=== PATIENT | female | born 1960 | race Caucasian/White ===

== ENCOUNTER 2016-12-18 23:53 | Inpatient (IN) ==
[2016-12-19 01:13] LABS: Bilirubin,Urine Negative (Negative); Blood,Urine Trace (Negative); Clarity,Urine Cloudy (Clear); Color,Urine Yellow (Yellow); Glucose,Urine (UA) Normal (Normal); Ketones,Urine Negative (Negative); Leukocyte Esterase,Urine Negative (Negative); Nitrite,Urine Negative (Negative); Protein,Urine Trace mg/dL (Neg-Trace); Urobilinogen,Urine Normal (Normal)
[2016-12-19 01:15] LABS: Bacteria,Urine None Seen per hpf (None-Few); Hyaline Casts,Urine None Seen per lpf (None-Few); RBC,Urine 0-3 per hpf (0-3); Squamous Epithelial Cell,Urine Many per lpf (None-Few); WBC,Urine 0-3 per hpf (0-3)
[2016-12-19 01:19] LABS: Basophils # 0.1 K/mcL (0.0-0.2); Basophils % 0.6 %; Eosinophils # 0.2 K/mcL (0.0-0.6); Eosinophils % 1.6 %; Hematocrit 35.2 % (35.3-44.9); Immature Granulocytes % 0.6 % (0-4); Lymphocytes % 14.5 %; Mean Corpuscular HGB Conc 36.9 g/dL (31.6-35.5); Mean Corpuscular Hemoglobin 31.8 pg (28.0-33.3); Mean Corpuscular Volume 86.1 fL (83.0-100.0); Mean Platelet Volume 9.9 fL (9.4-12.4); Monocytes # 1.4 K/mcL (0.0-1.3); Neutrophils # 10.2 K/mcL (1.6-8.9); Platelet Count 263 K/mcL (140-400); Red Blood Count 4.09 M/mcL (3.82-4.97); Red Cell Distribution Width 12.6 % (11.5-14.5); Segmented Neutrophils % 72.7 %
[2016-12-19 01:35] LABS: Alanine Aminotransferase 260 Units/L (0-55); Albumin 3.2 g/dL (3.5-5.0); Albumin/Globulin Ratio 0.7 (1.1-2.2); Alkaline Phosphatase 240 Units/L (38-126); Aspartate Amino Transferase 289 Units/L (5-34); BUN/Creatinine Ratio 8 (6-26); Bilirubin,Direct 0.7 mg/dL (0.0-0.5); Bilirubin,Indirect 0.6 mg/dL (0.0-1.2); Bilirubin,Total 1.3 mg/dL (0.2-1.2); Blood Urea Nitrogen 8 mg/dL (7-20); Calcium 9.2 mg/dL (8.6-10.8); Carbon Dioxide 25 mEq/L (19-29); Chloride 100 mEq/L (98-109); Globulin 4.5 g/dL (2.4-3.5); Glucose 138 mg/dL (70-99); Lipase 24 Units/L (8-78); Osmolality,Calculated 281 (280-300); Potassium 3.2 mEq/L (3.5-4.5); Sodium 135 mEq/L (136-145); Total Protein 7.7 g/dL (6.0-8.3); eGFR For African Americans > 60 (> 60); eGFR For Non-African Americans 56 (> 60)
--- NOTE | 2016-12-19 03:26 | Emergency Department Note ---
Disposition Clinical Impression: Sepsis Qualifiers: Sepsis type: sepsis due to unspecified organism Qualified Code(s): A41.9 - Sepsis, unspecified organism Acute appendicitis Qualifiers: Acute appendicitis type: with localized peritonitis Qualified Code(s): K35.3 - Acute appendicitis with localized peritonitis Disposition: Admitted As Inpatient Condition: Serious Time of Disposition: 06:20 Abdominal Pain HPI - General Chief Complaint: ED Abdominal Pain Stated Complaint: abd pain Time Seen by Provider: 12/19/16 03:00 Source: patient Mode of arrival: ambulatory Limitations: no limitations Nursing Notes Reviewed: Yes Vital Signs Reviewed: Yes - History of Present Illness HPI Narrative: 56 0 female with 1 week of abdominal pain, patient was seen and evaluated and told she constipation at the urgent care about 3 or 4 days ago. Patient states that she has right lower quadrant right upper quadrant pain radiating to her back. She states the pain is 8 out of 10 crampy, and she is uncomfortable. Her last meal was about 2:00 in the morning A she has a history of tubal ligation , she has no other medical issues and no other previous surgeries. He reports some emesis and nausea, denies fever chills Pt Subjective Complaint: abdominal pain Onset (ago): day(s) (5) Consistency: intermittent Location: diffuse, RLQ Pain Severity: moderate Pain Scale: 7 Quality: cramping, stabbing Radiation: RLQ Worsens with: eating, vomiting Associated symptoms: Reports: nausea, vomiting. Denies: fever, hematemesis, hematochezia - Related Data Home Medications Medication Instructions Recorded Confirmed Celecoxib [Celebrex] 200 mg PO DAILY 12/19/16 12/19/16 Cyclobenzaprine [Flexeril] 10 mg PO DAILY PRN 12/19/16 12/19/16 Methylphenidate HCl [Ritalin] 20 mg PO DAILY 12/19/16 12/19/16 Triamterene/Hydrochlorothiazid 1 each PO DAILY 12/19/16 12/19/16 [Dyazide 37.5-25 Capsule] Venlafaxine HCl [Venlafaxine HCl 150 mg PO DAILY 12/19/16 12/19/16 ER] Previous Rx's Medication Instructions Recorded Dicyclomine [Bentyl] 10 mg PO QID PRN #20 capsule 12/16/16 Na Phos,M-B/Na Phos,Di-Ba [Fleet 230 ml RC BID #2 enema 12/16/16 Enema Extra] Ondansetron HCl [Zofran] 4 mg PO QID #15 tablet 12/16/16 Allergies Allergy/AdvReac Type Severity Reaction Status Date / Time Sulfa (Sulfonamide Allergy Rash Verified 12/19/16 00:55 Antibiotics) All systems ED: reviewed and negative except as stated. Constitutional: Denies: fever, chills Cardiovascular: Denies: chest pain, palpitations Respiratory: Denies: cough, dyspnea, wheezes Gastrointestinal: Reports: abdominal pain, nausea, vomiting. Denies: diarrhea, hematemesis, melena, hematochezia Genitourinary: Denies: urgency, dysuria Musculoskeletal: Denies: back pain, neck pain Integumentary: Denies: rash, abrasion Abdominal Pain PMH - Past Medical History Medical history: Reports: no medical history Female Surgical History: Reports: - Social History Smoking status: Never smoker Alcohol use: Reports: none Drug use: Reports: none Physical Exam Constitutional: alert and oriented, in NAD, tachycardia Neck: normal inspection, neck is supple, trachea midline Resp: normal chest inspection, CTA bilaterally, no resp distress CV: Tachycardia, no m/g/r GI: Right lower quadrant tenderness with positive rebound and mild guarding. Normoactive bowel sounds, also right upper quadrant tenderness with a Rodas sign. Back: normal inspection, no tenderness to palpation Neuro: A&O3, no gross motor or sensory deficits bilaterally MSK: normal inspection, bilateral UE and LE with normal ROM Psych: normal mood, normal affect Skin: No rashes, skin warm, dry, intact - General General appearance: alert, in no apparent distress Course Course Narrative: 56-year-old female with right lower quadrant tenderness right upper quadrant tenderness and diffuse abdominal tenderness, told this was constipation, mildly tachycardic initially but her rate was 82 after an hour in the ED, basic lab work was ordered and showed a mildly leukocytosis and transaminitis without alert ordered an ultrasound of her gallbladder also will get a CT of her abdomen to evaluate for abdominal pathology - Reevaluation(s) Reevaluation #1: Call from radiology 05:00 with appendicitis on exam, this is her source for infection, given that she is a sore she had some tachycardia and has a leukocytosis will add blood cultures, started empirically on Zosyn and a lactate , patient technically meets for sepsis does not appear to have severe sepsis however does have evidence of transaminitis, lactate pending, initial fluid bolus, patient is nothing by mouth added coags will talk to general surgery for admission Vital Signs Temperature 99.6 F 12/19/16 00:53 Pulse Rate 108 12/19/16 00:53 Respiratory Rate 18 12/19/16 00:53 Blood Pressure 125/85 12/19/16 00:53 O2 Sat by Pulse Oximetry 98 12/19/16 00:53 Temperature 99.4 F 12/19/16 07:10 Pulse Rate 89 12/19/16 07:10 Respiratory Rate 16 12/19/16 07:10 Blood Pressure 120/76 12/19/16 07:10 O2 Sat by Pulse Oximetry 97 12/19/16 09:05 Oxygen Delivery Oxygen Delivery Room Air Abdominal Pain - MDM Narrative Medical decision making narrative: 56-year-old female with acute appendicitis with perforation possible abscess, started on Zosyn and IV fluids, spoke with Dr. Sutton will admit the patient for the general surgery service, technically meets criteria for sepsis this was recognized after findings of appendicitis, and patient was immediately started on empiric antibiotics after lactate and blood cultures were drawn, initial lactate was not elevated. - Differential Diagnosis Differential Diagnosis: Likely: abdominal pain non-specific, acute appendicitis , diverticulitis, diverticulosis - Medical Records Medical records reviewed: Yes I reviewed the patient's medical records. - Lab Data Lab results reviewed: Yes I reviewed the patient's lab results. Result diagrams: 12/19/16 01:13 12/19/16 01:13 Lab Results 12/19/16 12/19/16 12/19/16 Range/Units 01:05 01:13 01:13 WBC 14.0 H (4.3-11.1) K/mcL RBC 4.09 (3.82-4.97) M/mcL Hgb 13.0 (11.5-15.4) g/dL Hct 35.2 L (35.3-44.9) % MCV 86.1 (83.0-100.0) fL MCH 31.8 (28.0-33.3) pg MCHC 36.9 H (31.6-35.5) g/dL RDW 12.6 (11.5-14.5) % Plt Count 263 (140-400) K/mcL MPV 9.9 (9.4-12.4) fL Immature Gran % 0.6 (0-4) % Seg Neutrophils % 72.7 % Lymphocytes % 14.5 % Monocytes % 10.0 % Eosinophils % 1.6 % Basophils % 0.6 % Neutrophils # 10.2 H (1.6-8.9) K/mcL Lymphocytes # 2.0 (0.6-4.6) K/mcL Monocytes # 1.4 H (0.0-1.3) K/mcL Eosinophils # 0.2 (0.0-0.6) K/mcL Basophils # 0.1 (0.0-0.2) K/mcL PT (9.4-12.1) Seconds INR APTT (26.0-36.0) Seconds Sodium 135 L (136-145) mEq/L Potassium 3.2 L (3.5-4.5) mEq/L Chloride 100 (98-109) mEq/L Carbon Dioxide 25 (19-29) mEq/L BUN 8 (7-20) mg/dL Creatinine 1.02 (0.57-1.11) mg/dL Est GFR ( Amer) > 60 (> 60) Est GFR (Non-Af Amer) 56 L (> 60) BUN/Creatinine Ratio 8 (6-26) Glucose 138 H (70-99) mg/dL POC Glucose (58-89) Calculated Osmolality 281 (280-300) Lactic Acid (0.5-2.2) mmol/L Calcium 9.2 (8.6-10.8) mg/dL Total Bilirubin 1.3 H (0.2-1.2) mg/dL Direct Bilirubin 0.7 H (0.0-0.5) mg/dL Indirect Bilirubin 0.6 (0.0-1.2) mg/dL AST 289 H (5-34) Units/L ALT 260 H (0-55) Units/L Alkaline Phosphatase 240 H (38-126) Units/L Serum Total Protein 7.7 (6.0-8.3) g/dL Albumin 3.2 L (3.5-5.0) g/dL Globulin 4.5 H (2.4-3.5) g/dL Albumin/Globulin Ratio 0.7 L (1.1-2.2) Lipase 24 (8-78) Units/L Urine Color Yellow (Yellow) Urine Clarity Cloudy A (Clear) Urine pH 7.0 (5.0-8.0) pH Units Ur Specific [place] 1.010 (1.010-1.025) Urine Protein Trace (Neg-Trace) mg/dL Urine Glucose (UA) Normal (Normal) mg/dL Urine Ketones Negative (Negative) mg/dL Urine Blood Trace H (Negative) Urine Nitrite Negative (Negative) Urine Bilirubin Negative (Negative) Urine Urobilinogen Normal (Normal) mg/dL Ur Leukocyte Esterase Negative (Negative) Urine Microscopic RBC 0-3 (0-3) per hpf Urine Microscopic WBC 0-3 (0-3) per hpf Ur Squamous Epith Cells Many H (None-Few) per lpf Urine Bacteria None Seen (None-Few) per hpf Hyaline Casts None Seen (None-Few) per lpf Ur Culture Indicated? NO (NO) 12/19/16 12/19/16 12/19/16 Range/Units 05:40 05:40 08:19 WBC (4.3-11.1) K/mcL RBC (3.82-4.97) M/mcL Hgb (11.5-15.4) g/dL Hct (35.3-44.9) % MCV (83.0-100.0) fL MCH (28.0-33.3) pg MCHC (31.6-35.5) g/dL RDW (11.5-14.5) % Plt Count (140-400) K/mcL MPV (9.4-12.4) fL Immature Gran % (0-4) % Seg Neutrophils % % Lymphocytes % % Monocytes % % Eosinophils % % Basophils % % Neutrophils # (1.6-8.9) K/mcL Lymphocytes # (0.6-4.6) K/mcL Monocytes # (0.0-1.3) K/mcL Eosinophils # (0.0-0.6) K/mcL Basophils # (0.0-0.2) K/mcL PT 13.7 H (9.4-12.1) Seconds INR 1.3 APTT 27.7 (26.0-36.0) Seconds Sodium (136-145) mEq/L Potassium (3.5-4.5) mEq/L Chloride (98-109) mEq/L Carbon Dioxide (19-29) mEq/L BUN (7-20) mg/dL Creatinine (0.57-1.11) mg/dL Est GFR ( Amer) (> 60) Est GFR (Non-Af Amer) (> 60) BUN/Creatinine Ratio (6-26) Glucose (70-99) mg/dL POC Glucose 129 H (58-89) Calculated Osmolality (280-300) Lactic Acid 1.0 (0.5-2.2) mmol/L Calcium (8.6-10.8) mg/dL Total Bilirubin (0.2-1.2) mg/dL Direct Bilirubin (0.0-0.5) mg/dL Indirect Bilirubin (0.0-1.2) mg/dL AST (5-34) Units/L ALT (0-55) Units/L Alkaline Phosphatase (38-126) Units/L Serum Total Protein (6.0-8.3) g/dL Albumin (3.5-5.0) g/dL Globulin (2.4-3.5) g/dL Albumin/Globulin Ratio (1.1-2.2) Lipase (8-78) Units/L Urine Color (Yellow) Urine Clarity (Clear) Urine pH (5.0-8.0) pH Units Ur Specific [place] (1.010-1.025) Urine Protein (Neg-Trace) mg/dL Urine Glucose (UA) (Normal) mg/dL Urine Ketones (Negative) mg/dL Urine Blood (Negative) Urine Nitrite (Negative) Urine Bilirubin (Negative) Urine Urobilinogen (Normal) mg/dL Ur Leukocyte Esterase (Negative) Urine Microscopic RBC (0-3) per hpf Urine Microscopic WBC (0-3) per hpf Ur Squamous Epith Cells (None-Few) per lpf Urine Bacteria (None-Few) per hpf Hyaline Casts (None-Few) per lpf Ur Culture Indicated? (NO) - Radiology Data Radiology results reviewed: Yes I reviewed the patient's radiology results. Gallbladder Ultrasound 12/19/16 03:32 IMPRESSION: No cholelithiasis. No biliary dilation. Hepatic steatosis. D/ / Melo Lea MD / Melo Lea MD Interpreting Provider: Melo Lea MD Abdomen/Pelvis CT 12/19/16 03:33 IMPRESSION: 1. Acute appendicitis with extensive inflammatory stranding within the right lower quadrant and small ill-defined fluid collection likely representing a developing abscess. This collection is not amenable to percutaneous drainage. These findings were discussed with Kyrie Jauregui at 5:11 a.m. 12/19/2016. 2. Hepatomegaly with steatosis. D/ / Adebayo Oliveros MD / Adebayo Oliveros MD Interpreting Provider: Adebayo Oliveros MD Critical Care Time Critical Care Time: Yes Total Critical Care Time: 35 Attestation: The high probability of a clinically significant, sudden or life threatening deterioration of the cardiovascular system(s) required my full and direct attention, intervention and personal management. The aggregate critical care time was 35 minutes. This time is in addition to time spent performing reported procedures but includes the following: [x] Data Review and interpretation [x] Patient assessment and monitoring of vital signs [x] Documentation [x] Medication orders and management Attestation Statement - Attestation Attestation: I examined this patient and my medical decision-making was reviewed with the CLINICAL SUPERVISOR/PA/Advanced Practice Nurse/Resident Physician. I agree with the documented findings, disposition and treatment plan as described except to the extent set forth below. 56 yo female presents with abdominal pain. Pt reports pain in the RUQ and RLQ. Initial labs ordered from the waiting room. US of the RUQ did not reveal acute cholecystitis. CT abd/pelvis shows likely ruptured appendicitis. Pt started on Abx and admitted to surgery.
[2016-12-19] MEDS ORDERED: Ondansetron 4 MG/2 ML VIAL IV ONE (03:33)
[2016-12-19] MEDS ORDERED: *HR* HYDROmorphone (PF) 1 MG/ML SYRINGE IV ONE (03:33)
[2016-12-19] MEDS ORDERED: 0.9 % Sodium Chloride 1,000 ML IVC ONE (03:33)
[2016-12-19] MEDS ORDERED: Piperacillin/Tazobactam 3.375 GM in D5% in Water (Mini-Bag+) 100 ML IVPB ONE (05:13)
[2016-12-19] MEDS ORDERED: *HR* Morphine 2 MG/ML SYRINGE IV ONE (05:29)
[2016-12-19 06:00] LABS: INR 1.3; Prothrombin Time 13.7 Seconds (9.4-12.1)
[2016-12-19 06:03] LABS: Activated Partial Thrombo Time 27.7 Seconds (26.0-36.0)
--- NOTE | 2016-12-19 08:16 | General Surg History&Physical ---
Date of Encounter: 12/19/16 Time of Encounter: 07:30 Assessment and Plan (1) Acute appendicitis Current Visit: Yes Status: Acute The assessment and plan as outlined above was discussed with the patient and/or family members who expressed understanding and agreement. All questions were answered. The patient has a phlegmon in the right lower quadrant 5 day history of abdominal pain. There are no discrete fluid collections area I believe that this is best treated with antibiotics and clinical reevaluation for abscess development. She would best be served with convalescent laparoscopic appendectomy after successful antibiotic therapy. If she requires urgent operation this carries a higher risk of bowel resection Qualifiers: Acute appendicitis type: with localized peritonitis Qualified Code(s): K35.3 - Acute appendicitis with localized peritonitis History of Present Illness Chief complaint: Abdominal pain HPI: Ms. Bedoya is a 56 year old female With 5-6 days of abdominal pain. She states that her pain has been diffuse and nonspecific. Over the last 24 hours the pain is concentrated more on the right lower quadrant. She is experiencing nausea but no vomiting. She has had fevers shakes and chills .she is not anorexic she sought evaluation in the emergency room and laboratory values demonstrated leukocytosis CAT scan demonstrated phlegmon in the right lower quadrant. This is likely from perforated appendicitis. There is no discrete abscess she now presents for inpatient therapy for phlegmon of the right lower quadrant Past Med Surg Social Fam HX - Past Medical History Medical history: no medical history Psychiatric history: depression - Past Surgical History Surgical History: - Social History Smoking Status: Never smoker Smokeless Tobacco Status: No Alcohol use: rarely Drug use: none - Family History Mother Living Status: Age at : 72 Cause of : Post Op Complications Hx Family Cardiac Disorders: Yes (HTN) Hx Family Respiratory Disorders: Yes (COPD) Hx Family Cancer: Yes (Sarcoma) Hx Family GI Disorders: No Hx Family Genitourinary Disorders: No Hx Family Endocrine Disorder: No Hx Family Musculoskeletal Disorders: Yes (Scoliosis) Hx Family Neuromuscular Disorders: No Hx Family Neurologic Disorders: No Hx Family HEENT Disorders: No Hx Family Autoimmune Disorders: No Hx Family Reproductive Disorders: No Hx Family Psychosocial Disorders: No Hx Family Medical Disorders: No Medications and Allergies Dicyclomine [Bentyl] 10 mg PO QID PRN #20 capsule 12/16/16 [Rx] Na Phos,M-B/Na Phos,Di-Ba [Fleet Enema Extra] 230 ml RC BID #2 enema 12/16/16 [ Rx] Ondansetron HCl [Zofran] 4 mg PO QID #15 tablet 12/16/16 [Rx] Cyclobenzaprine [Flexeril] 10 mg PO ONCE 12/19/16 [History] Methylphenidate HCl [Ritalin] 20 mg PO DAILY 12/19/16 [History] Triamterene/HCTZ 37.5/25mg [Dyazide] 12/19/16 [History] Venlafaxine [Effexor] 25 mg PO 12/19/16 [History] Allergies Sulfa (Sulfonamide Antibiotics) Allergy (Verified 12/19/16 00:55) Rash Review of Systems All systems PM: A 10-system review of systems was performed and is negative for pertinent findings except as documented above in the HPI. General Surgery Exam Initial Vital Signs Temp Pulse Resp BP Pulse Ox 99.6 F 108 18 125/85 98 12/19/16 00:53 12/19/16 00:53 12/19/16 00:53 12/19/16 00:53 12/19/16 00:53 - General physical appearance well developed, well nourished, no distress - ENT normal pinna, normal nares, normal mucosa, no hearing loss, no congestion - Respiratory normal expansion, normal respiratory effort, clear to percussion, clear to auscultation - Cardiovascular Cardiovascular exam: Present: RRR, 15, 16 - Abdomen Abdomen general surgery: Present: guarding, rebound (Left side of the abdomen is mildly tender with no guarding.) Abdominal Tenderness: Present: RLQ - Neurologic Present: CN 2-12 grossly intact, normal coordination, normal sensation - Psychiatric Psychiatric general surgery: Present: appropriate, oriented to person, oriented to place, oriented to time, speech is normal, memory intact Results - Labs 12/19/16 01:13 12/19/16 01:13 Abnormal lab results WBC 14.0 K/mcL (4.3-11.1) H 12/19/16 01:13 Hct 35.2 % (35.3-44.9) L 12/19/16 01:13 MCHC 36.9 g/dL (31.6-35.5) H 12/19/16 01:13 Neutrophils # 10.2 K/mcL (1.6-8.9) H 12/19/16 01:13 Monocytes # 1.4 K/mcL (0.0-1.3) H 12/19/16 01:13 PT 13.7 Seconds (9.4-12.1) H 12/19/16 05:40 Sodium 135 mEq/L (136-145) L 12/19/16 01:13 Potassium 3.2 mEq/L (3.5-4.5) L 12/19/16 01:13 Est GFR (Non-Af Amer) 56 (> 60) L 12/19/16 01:13 Glucose 138 mg/dL (70-99) H 12/19/16 01:13 Total Bilirubin 1.3 mg/dL (0.2-1.2) H 12/19/16 01:13 Direct Bilirubin 0.7 mg/dL (0.0-0.5) H 12/19/16 01:13 AST 289 Units/L (5-34) H 12/19/16 01:13 ALT 260 Units/L (0-55) H 12/19/16 01:13 Alkaline Phosphatase 240 Units/L (38-126) H 12/19/16 01:13 Albumin 3.2 g/dL (3.5-5.0) L 12/19/16 01:13 Globulin 4.5 g/dL (2.4-3.5) H 12/19/16 01:13 Albumin/Globulin Ratio 0.7 (1.1-2.2) L 12/19/16 01:13 Urine Clarity Cloudy (Clear) A 12/19/16 01:05 Urine Blood Trace (Negative) H 12/19/16 01:05 Ur Squamous Epith Cells Many per lpf (None-Few) H 12/19/16 01:05 All other labs normal. - Imaging CT scan - abdomen: image reviewed (I personally reviewed the CAT scan abdomen. I agree with the findings of. Cecal and mesentery inflammation. There is also a localized loop of dilated small bowel terminal ileum adjacent to be phlegmon. I cannot clearly see the appendix.)
[2016-12-19] MEDS ORDERED: Ondansetron 4 MG/2 ML VIAL IVP PRN (09:04)
[2016-12-19] MEDS ORDERED: Naloxone 0.4 MG/ML INJ IVP PRN (09:04)
[2016-12-19] MEDS: 0.9 % Sodium Chloride 1,000 ML IVC SCH ×2 (09:24→21:53)
[2016-12-19] MEDS: *HR* HYDROmorphone (PF) 1 MG/ML SYRINGE IVP PRN ×8 (09:24→23:08)
[2016-12-19] MEDS: Piperacillin/Tazobactam 3.375 GM in D5% in Water (Mini-Bag+) 100 ML IVPB SCH (15:48)
[2016-12-19] MEDS: *HR* Heparin 5,000 UNIT/ML VIAL SQ SCH (18:12)
[2016-12-20] MEDS: Piperacillin/Tazobactam 3.375 GM in D5% in Water (Mini-Bag+) 100 ML IVPB SCH ×4 (00:11→23:42)
[2016-12-20] MEDS: *HR* HYDROmorphone (PF) 1 MG/ML SYRINGE IVP PRN ×8 (04:04→23:41)
[2016-12-20 05:21] LABS: Basophils # 0.1 K/mcL (0.0-0.2); Basophils % 0.6 %; Eosinophils # 0.3 K/mcL (0.0-0.6); Eosinophils % 2.3 %; Hemoglobin 11.5 g/dL (11.5-15.4); Immature Granulocytes % 1.2 % (0-4); Lymphocytes # 1.3 K/mcL (0.6-4.6); Lymphocytes % 11.4 %; Mean Corpuscular HGB Conc 35.9 g/dL (31.6-35.5); Mean Corpuscular Hemoglobin 31.6 pg (28.0-33.3); Mean Corpuscular Volume 87.9 fL (83.0-100.0); Mean Platelet Volume 10.1 fL (9.4-12.4); Monocytes # 1.4 K/mcL (0.0-1.3); Monocytes % 11.9 %; Neutrophils # 8.2 K/mcL (1.6-8.9); Platelet Count 228 K/mcL (140-400); Red Blood Count 3.64 M/mcL (3.82-4.97); Red Cell Distribution Width 13.1 % (11.5-14.5); Segmented Neutrophils % 72.6 %
[2016-12-20] MEDS: *HR* Heparin 5,000 UNIT/ML VIAL SQ SCH ×2 (05:37→16:32)
--- NOTE | 2016-12-20 08:48 | General Surgery Progress Note ---
Date of Encounter: 12/20/16 Time of Encounter: 08:45 - Assessment and Plan (1) Acute appendicitis Current Visit: Yes Status: Acute Phlegmon in RLQ. She is feeling better today. The involuntary guarding has subsided. Denies nausea. WBC down to 11.3 today from 14 yesterday. Plan is to re-image abdomen at 48-72 hours to check for abscess. Conservative measures to continue. Continue Zosyn, clear liquid diet, antiemetics, pain control, IVF NS@100ml/hr Qualifiers: Acute appendicitis type: with localized peritonitis Qualified Code(s): K35.3 - Acute appendicitis with localized peritonitis Subjective Patient reports: feels better, still having pain, pain is less Narrative: Patient seen and examined. She is feeling better today, but is still having abdominal tenderness. However the involuntary guarding has subsided. Objective Vital Signs - Last 8 Hours Temp Pulse Resp BP Pulse Ox 12/20/16 06:29 98.5 F 99 16 107/70 98 Intake and Output 12/19/16 12/20/16 12/20/16 23:59 07:59 15:59 Intake Total 1340 / 1340 120 / 120 Output Total 1300 / 1300 600 / 600 Balance 40 / 40 -480 / -480 Intake: IV Fluids 1100 / 1100 0.9 % Sodium Chloride 1, 1000 / 1000 000 ML @ 100 mls/hr IVC . Q10H JAILYN Rx#:[id number] Zosyn 3.375 GM In 100 / 100 Dextrose 5% (Minibag+) 100 ML 100 ML @ 25 mls/hr IVPB Q8HR JAILYN Rx#: [id number] Oral 240 / 240 120 / 120 Output: Urine 1300 / 1300 600 / 600 Other: Meal Dinner Percent of Meal Consumed 50% - Additional Exam - General physical appearance well developed, well nourished, no distress - ENT normal pinna, normal nares, normal mucosa, no hearing loss, no congestion - Respiratory normal expansion, normal respiratory effort, clear to percussion, clear to auscultation - Cardiovascular Cardiovascular exam: Present: RRR, 15, 16 - Abdomen Abdomen general surgery: Present: right-sided abdominal tenderness, Absent: guarding Abdominal Tenderness: Present: RLQ - Neurologic Present: CN 2-12 grossly intact, normal coordination, normal sensation - Psychiatric Psychiatric general surgery: Present: appropriate, oriented to person, oriented to place, oriented to time, speech is normal, memory intact - Labs 12/20/16 04:15 12/19/16 01:13 Consult Discharge Plan - Plan Referrals: Oleksandr Mai MD [Primary Care Provider] - - Attending Attestation I examined this patient and my medical decision-making was reviewed with the MEDICAL DEVICE SALES/PA/Advanced Practice Nurse/Resident Physician. I agree with the documented findings, disposition and treatment plan as described except to the extent set forth below. The patient was seen and evaluated on morning rounds with the resident. She is made significant improvement in her abdominal pain. Her white blood cell count has normalized. We will continue IV antibiotics today. We will plan on convalescent laparoscopic appendectomy electively. Asim Sutton MD FACS
[2016-12-20] MEDS: 0.9 % Sodium Chloride 1,000 ML IVC SCH (16:19)
[2016-12-21] MEDS: 0.9 % Sodium Chloride 1,000 ML IVC SCH ×2 (01:54→12:01)
[2016-12-21] MEDS: *HR* HYDROmorphone (PF) 1 MG/ML SYRINGE IVP PRN ×11 (04:10→21:41)
[2016-12-21] MEDS: *HR* Heparin 5,000 UNIT/ML VIAL SQ SCH ×2 (06:28→19:17)
[2016-12-21] MEDS: Piperacillin/Tazobactam 3.375 GM in D5% in Water (Mini-Bag+) 100 ML IVPB SCH ×2 (07:49→15:40)
[2016-12-21 09:30] LABS: Hematocrit 29.2 % (35.3-44.9); Hemoglobin 10.5 g/dL (11.5-15.4); Mean Corpuscular Hemoglobin 31.5 pg (28.0-33.3); Mean Corpuscular Volume 87.7 fL (83.0-100.0); Mean Platelet Volume 9.7 fL (9.4-12.4); Platelet Count 212 K/mcL (140-400); Red Blood Count 3.33 M/mcL (3.82-4.97)
--- NOTE | 2016-12-21 09:52 | General Surgery Progress Note ---
Date of Encounter: 12/21/16 Time of Encounter: 09:50 - Assessment and Plan (1) Acute appendicitis Current Visit: Yes Status: Acute Phlegmon in RLQ. Plan is for convalescent laparoscopic appendectomy electively. Still having abdominal pain today. States it is a bit worse than yesterday. The involuntary guarding has subsided. Denies nausea. WBC: 14>11.3>8.[address] abd/pel with oral contrast to r/o abscess. Imaging results will guide treatment. Conservative measures to continue. Continue Zosyn, clear liquid diet, antiemetics, pain control, IVF NS@100ml/hr Qualifiers: Acute appendicitis type: with localized peritonitis Qualified Code(s): K35.3 - Acute appendicitis with localized peritonitis Subjective Patient reports: still having pain, afebrile Narrative: Patient seen and examined. Still having abdominal pain today. Will obtain repeat abdominal/pelvis CT to r/o abscess formation. Afebrile. WBC 8.7. Objective Vital Signs - Last 8 Hours Temp Pulse Resp BP Pulse Ox 12/21/16 06:44 98.4 F 88 16 119/79 96 12/21/16 04:11 98.7 F 86 16 124/74 94 L Intake and Output 12/20/16 12/21/16 12/21/16 23:59 07:59 15:59 Intake Total 460 / 460 2100 / 2100 120 / 120 Output Total 1300 / 1300 1250 / 1250 Balance -840 / -840 850 / 850 120 / 120 Intake: IV Fluids 100 / 100 1100 / 1100 0.9 % Sodium Chloride 1, 1000 / 1000 000 ML @ 100 mls/hr IVC . Q10H JAILYN Rx#:[id number] Zosyn 3.375 GM In 100 / 100 100 / 100 Dextrose 5% (Minibag+) 100 ML 100 ML @ 25 mls/hr IVPB Q8HR JAILYN Rx#: [id number] Oral 360 / 360 1000 / 1000 120 / 120 Output: Urine 1300 / 1300 1250 / 1250 Other: Meal Breakfast Percent of Meal Consumed 10% - Additional Exam - General physical appearance well developed, well nourished, no distress - Respiratory normal expansion, normal respiratory effort, clear to percussion, clear to auscultation - Cardiovascular Cardiovascular exam: Present: RRR - Abdomen Abdomen general surgery: Present: right-sided abdominal tenderness, Absent: guarding Abdominal Tenderness: Present: RLQ - Neurologic Present: CN 2-12 grossly intact, normal coordination, normal sensation - Psychiatric Psychiatric general surgery: Present: appropriate, oriented to person, oriented to place, oriented to time, speech is normal, memory intact - Labs 12/21/16 09:17 12/19/16 01:13 Consult Discharge Plan - Plan Referrals: Oleksandr Mai MD [Primary Care Provider] - - Attending Attestation I examined this patient and my medical decision-making was reviewed with the HEALTHCARE ASSOCIATE/PA/Advanced Practice Nurse/Resident Physician. I agree with the documented findings, disposition and treatment plan as described except to the extent set forth below. The patient is seen and evaluated with the resident on morning rounds. She is having some additional abdominal pain. Her abdominal pain is localized to the right lower quadrant. Her white blood cell count is normal. We will repeat her CAT scan and GI contrast today. Asim Sutton MD FACS
[2016-12-21 10:02] LABS: Basophils # 0.2 K/mcL (0.0-0.2); Eosinophils # 0.2 K/mcL (0.0-0.6); Lymphocytes # 2.1 K/mcL (0.6-4.6); Monocytes # 0.4 K/mcL (0.0-1.3); Neutrophils # 5.9 K/mcL (1.6-8.9)
[2016-12-21 10:03] LABS: Platelet Estimate Normal (Normal)
[2016-12-21] MEDS: *HR* OxyCODONE/APAP 10/325 TABLET PO PRN ×2 (17:01→21:41)
[2016-12-22] MEDS: Piperacillin/Tazobactam 3.375 GM in D5% in Water (Mini-Bag+) 100 ML IVPB SCH ×4 (01:16→23:42)
[2016-12-22] MEDS: 0.9 % Sodium Chloride 1,000 ML IVC SCH ×4 (01:17→23:41)
[2016-12-22] MEDS: *HR* HYDROmorphone (PF) 1 MG/ML SYRINGE IVP PRN ×7 (01:25→21:09)
[2016-12-22] MEDS: *HR* OxyCODONE/APAP 10/325 TABLET PO PRN ×4 (02:29→18:03)
[2016-12-22] MEDS: *HR* Heparin 5,000 UNIT/ML VIAL SQ SCH ×2 (05:15→16:14)
[2016-12-22 06:58] LABS: Basophils # 0.1 K/mcL (0.0-0.2); Basophils % 0.7 %; Eosinophils # 0.3 K/mcL (0.0-0.6); Eosinophils % 3.1 %; Hemoglobin 11.2 g/dL (11.5-15.4); Immature Granulocytes % 1.6 % (0-4); Lymphocytes # 1.6 K/mcL (0.6-4.6); Mean Corpuscular Hemoglobin 32.1 pg (28.0-33.3); Mean Platelet Volume 10.1 fL (9.4-12.4); Monocytes # 1.1 K/mcL (0.0-1.3); Monocytes % 13.1 %; Neutrophils # 5.5 K/mcL (1.6-8.9); Platelet Count 230 K/mcL (140-400); Red Blood Count 3.49 M/mcL (3.82-4.97); Red Cell Distribution Width 13.1 % (11.5-14.5); Segmented Neutrophils % 63.5 %
[2016-12-22 07:03] LABS: BUN/Creatinine Ratio 5 (6-26); Calcium 8.6 mg/dL (8.6-10.8); Carbon Dioxide 27 mEq/L (19-29); Chloride 103 mEq/L (98-109); Glucose 92 mg/dL (70-99); Osmolality,Calculated 283 (280-300); Sodium 138 mEq/L (136-145); eGFR For African Americans > 60 (> 60); eGFR For Non-African Americans > 60 (> 60)
[2016-12-22 07:04] LABS: Blood Urea Nitrogen 4 mg/dL (7-20)
[2016-12-22 07:10] LABS: Mean Corpuscular HGB Conc 37.3 g/dL (31.6-35.5)
[2016-12-22 07:29] LABS: Platelet Estimate Normal (Normal); Reactive Lymphocytes Present (Not Present)
--- NOTE | 2016-12-22 08:42 | General Surgery Progress Note ---
Date of Encounter: 12/25/16 Time of Encounter: 08:39 - Assessment and Plan (1) Acute appendicitis Current Visit: Yes Status: Acute Phlegmon in RLQ. Plan is for convalescent laparoscopic appendectomy electively. Continues to have abdominal pain, but is slightly decreased from yesterday. Repeat CT A/P: A 2.1 x 1.9 x 2.2 cm focal air and fluid collection consistent with early abscess is now present, located superior to the inflamed appendix. This was expected and is too small to drain and should respond to antibiotics( Zosyn Day 3). WBC: 14>11.3>8.7 Afebrile Conservative measures to continue. Continue Zosyn (day 3), clear liquid diet, antiemetics, pain control, IVF NS@ 100ml/hr Qualifiers: Acute appendicitis type: with localized peritonitis Qualified Code(s): K35.3 - Acute appendicitis with localized peritonitis (2) Hypokalemia Current Visit: Yes Status: Acute K+ 3.0 this am. Will replete with PO potassium (80 meq now) Check K+ and Magnesium in am. Subjective Patient reports: still having pain, afebrile Narrative: Patient seen and examined. Repeat CT A/P revealed 2x2x2 cm discrete air/fluid collection likely an abscess is present superior to the tip of the appendix. This is too small to drain and should respond appropriately to antibiotics. She is still having abdominal pain. Objective Vital Signs - Last 8 Hours Temp Pulse Resp BP Pulse Ox 12/22/16 07:39 98.5 F 88 16 126/83 99 12/22/16 04:24 98.5 F 90 15 136/80 96 12/22/16 01:08 98.2 F 91 16 131/80 94 L Intake and Output 12/21/16 12/22/16 12/22/16 23:59 07:59 15:59 Intake Total 400 / 400 1000 / 1000 Output Total 900 / 900 1900 / 1900 Balance -500 / -500 -900 / -900 Intake: IV Fluids 100 / 100 1000 / 1000 0.9 % Sodium Chloride 1, 900 / 900 000 ML @ 100 mls/hr IVC . Q10H [facility] Rx#:[id number] Zosyn 3.375 GM In 100 / 100 100 / 100 Dextrose 5% (Minibag+) 100 ML 100 ML @ 25 mls/hr IVPB Q8HR [facility] Rx#: [id number] Oral 300 / 300 0 / 0 Output: Urine 900 / 900 1900 / 1900 - Additional Exam - General physical appearance well developed, well nourished, no distress - Respiratory normal expansion, normal respiratory effort, clear to percussion, clear to auscultation - Cardiovascular Cardiovascular exam: Present: RRR - Abdomen Abdomen general surgery: Present: right-sided abdominal tenderness, Absent: guarding Abdominal Tenderness: Present: RLQ - Neurologic Present: CN 2-12 grossly intact, normal coordination, normal sensation - Psychiatric Psychiatric general surgery: Present: appropriate, oriented to person, oriented to place, oriented to time, speech is normal, memory intact - Labs 12/25/16 04:49 12/25/16 04:49 Diabetes panel 12/22/16 Range/Units 06:07 Sodium 138 (136-145) mEq/L Potassium 3.0 L (3.5-4.5) mEq/L Chloride 103 (98-109) mEq/L Carbon Dioxide 27 (19-29) mEq/L BUN 4 L (7-20) mg/dL Creatinine 0.76 (0.57-1.11) mg/dL Glucose 92 (70-99) mg/dL Calcium 8.6 (8.6-10.8) mg/dL Calcium panel 12/22/16 Range/Units 06:07 Calcium 8.6 (8.6-10.8) mg/dL Pituitary panel 12/22/16 Range/Units 06:07 Sodium 138 (136-145) mEq/L Potassium 3.0 L (3.5-4.5) mEq/L Chloride 103 (98-109) mEq/L Carbon Dioxide 27 (19-29) mEq/L BUN 4 L (7-20) mg/dL Creatinine 0.76 (0.57-1.11) mg/dL Glucose 92 (70-99) mg/dL Calcium 8.6 (8.6-10.8) mg/dL Adrenal panel 12/22/16 Range/Units 06:07 Sodium 138 (136-145) mEq/L Potassium 3.0 L (3.5-4.5) mEq/L Chloride 103 (98-109) mEq/L Carbon Dioxide 27 (19-29) mEq/L BUN 4 L (7-20) mg/dL Creatinine 0.76 (0.57-1.11) mg/dL Glucose 92 (70-99) mg/dL Calcium 8.6 (8.6-10.8) mg/dL Consult Discharge Plan - Plan Referrals: Oleksandr Mai MD [Primary Care Provider] - - Attending Attestation I examined this patient and my medical decision-making was reviewed with the UPHOLSTERER INSIDE/PA/Advanced Practice Nurse/Resident Physician. I agree with the documented findings, disposition and treatment plan as described except to the extent set forth below. The patient has had normalization of her white blood cell count. She is seen and evaluated with the resident on morning rounds today. She continues to have mild abdominal pain. We will transition her to oral antibiotics and give her regular diet we will plan on discharging her tomorrow morning for further oral antibiotic therapy at home. If she clinically worsens, surgery may be indicated. Asim Sutton MD FACS
[2016-12-22] MEDS ORDERED: Lidocaine -MPF 1% 2 ML VIAL ID PRN (12:32)
[2016-12-23] MEDS: *HR* OxyCODONE/APAP 10/325 TABLET PO PRN ×3 (01:50→19:12)
[2016-12-23 05:02] LABS: Hematocrit 33.9 % (35.3-44.9); Hemoglobin 12.1 g/dL (11.5-15.4)
[2016-12-23 05:16] LABS: Magnesium 1.6 mg/dL (1.6-2.6); Potassium 3.6 mEq/L (3.5-4.5)
[2016-12-23] MEDS: *HR* Heparin 5,000 UNIT/ML VIAL SQ SCH ×2 (05:46→17:36)
[2016-12-23] MEDS: *HR* HYDROmorphone (PF) 1 MG/ML SYRINGE IVP PRN ×7 (05:52→23:11)
[2016-12-23] MEDS: Piperacillin/Tazobactam 3.375 GM in D5% in Water (Mini-Bag+) 100 ML IVPB SCH ×3 (09:07→23:11)
[2016-12-23] MEDS: 0.9 % Sodium Chloride 1,000 ML IVC SCH ×2 (10:04→21:04)
--- NOTE | 2016-12-23 14:06 | General Surgery Progress Note ---
Date of Encounter: 12/23/16 Time of Encounter: 14:00 - Assessment and Plan (1) Perforated appendicitis Current Visit: Yes Status: Acute patient with more distention and a little more discomfort after drinking clears , will check axr to evaluate for ileus vitals stable and no fevers continue abx - zosyn will continue sips of clears for now (2) Intra-abdominal abscess Current Visit: Yes Status: Acute wbc normal for two days continue abx, abscess too small to drain (3) Cough Current Visit: Yes Status: Acute expressed concern regarding a new cough patient has, lungs were clear will start BID duoneb and aggressive IS therapy Subjective Narrative: patient complaining of abdominal distention and more discomfort after she drinks some liquids. She is passing flatus and had a bm, denies nausea she states the RLQ pain isnt any worse Objective Vital Signs - Last 8 Hours Temp Pulse Resp BP Pulse Ox 12/23/16 10:43 98.7 F 103 16 138/84 100 12/23/16 06:56 97.9 F 92 14 134/85 98 Intake and Output 12/22/16 12/23/16 12/23/16 23:59 07:59 15:59 Intake Total 700 / 700 100 / 100 1600 / 1600 Output Total 0 / 0 1850 / 1850 0 / 0 Balance 700 / 700 -1750 / -1750 1600 / 1600 Intake: IV Fluids 100 / 100 100 / 100 1000 / 1000 0.9 % Sodium Chloride 1, 1000 / 1000 000 ML @ 100 mls/hr IVC . Q10H [facility] Rx#:[id number] Zosyn 3.375 GM In 100 / 100 100 / 100 Dextrose 5% (Minibag+) 100 ML 100 ML @ 25 mls/hr IVPB Q8HR [facility] Rx#: [id number] Oral 600 / 600 0 / 0 600 / 600 Output: Urine 0 / 0 1850 / 1850 0 / 0 Other: Meal Dinner Breakfast Stool Size Small Stool Consistency soft Stool Color Brown # Bowel Movements 1 Weight 74.843 kg Patient Weight 12/23/16 23:59 Weight 74.843 kg - General physical appearance well developed, well nourished, no distress - Eyes PERRL, normal ocular movement - ENT normal mucosa, atraumatic, normocephalic - Neck Neck exam: trachea midline - Respiratory normal expansion, clear to auscultation - Cardiovascular Cardiovascular exam: Present: RRR - Abdomen Abdomen: Present: bowel sounds present (but decreased), soft, tender (mildly RLQ ). Absent: tympanic, distended, guarding, rebound - Integumentary no rash, no growths - Neurologic CN 2-12 grossly intact - Musculoskeletal normal posture - Psychiatric oriented to time, oriented to person, memory intact - Labs 12/23/16 04:54 12/23/16 04:54 Vital Signs Temp Pulse Resp BP Pulse Ox 12/23/16 10:43 98.7 F 103 16 138/84 100 12/23/16 06:56 97.9 F 92 14 134/85 98 12/23/16 00:10 98.5 F 90 16 139/84 99 12/22/16 19:41 99.1 F 96 16 127/88 97 12/22/16 15:09 98.5 F 92 18 134/87 97 Intake and Output 12/22/16 12/23/16 12/23/16 23:59 07:59 15:59 Intake Total 700 / 700 100 / 100 1600 / 1600 Output Total 0 / 0 1850 / 1850 0 / 0 Balance 700 / 700 -1750 / -1750 1600 / 1600 Intake: IV Fluids 100 / 100 100 / 100 1000 / 1000 0.9 % Sodium Chloride 1, 1000 / 1000 000 ML @ 100 mls/hr IVC . Q10H [facility] Rx#:[id number] Zosyn 3.375 GM In 100 / 100 100 / 100 Dextrose 5% (Minibag+) 100 ML 100 ML @ 25 mls/hr IVPB Q8HR [facility] Rx#: [id number] Oral 600 / 600 0 / 0 600 / 600 Output: Urine 0 / 0 1850 / 1850 0 / 0 Other: Meal Dinner Breakfast Stool Size Small Stool Consistency soft Stool Color Brown # Bowel Movements 1 Weight 74.843 kg Patient Weight 12/23/16 23:59 Weight 74.843 kg Short CBC 12/23/16 Range/Units 04:54 Hgb 12.1 (11.5-15.4) g/dL Hct 33.9 L (35.3-44.9) % BMP 12/23/16 Range/Units 04:54 Potassium 3.6 (3.5-4.5) mEq/L Consult Discharge Plan - Plan Referrals: Oleksandr Mai MD [Primary Care Provider] -
[2016-12-23 15:27] LABS: Basophils # 0.1 K/mcL (0.0-0.2); Basophils % 0.8 %; Eosinophils # 0.3 K/mcL (0.0-0.6); Hematocrit 32.2 % (35.3-44.9); Hemoglobin 11.6 g/dL (11.5-15.4); Immature Granulocytes % 1.8 % (0-4); Lymphocytes # 1.3 K/mcL (0.6-4.6); Mean Corpuscular Hemoglobin 31.3 pg (28.0-33.3); Mean Corpuscular Volume 86.8 fL (83.0-100.0); Mean Platelet Volume 9.5 fL (9.4-12.4); Monocytes # 0.9 K/mcL (0.0-1.3); Monocytes % 8.6 %; Neutrophils # 7.8 K/mcL (1.6-8.9); Platelet Count 232 K/mcL (140-400); Red Blood Count 3.71 M/mcL (3.82-4.97); Segmented Neutrophils % 73.8 %
[2016-12-23 15:30] LABS: Platelet Estimate Normal (Normal); Reactive Lymphocytes Present (Not Present)
[2016-12-23] MEDS: Ipratropium/Albuterol Neb 3 ML IH SCH ×2 (16:41→20:33)
[2016-12-24] MEDS: *HR* OxyCODONE/APAP 10/325 TABLET PO PRN ×4 (05:33→19:55)
[2016-12-24] MEDS: *HR* Heparin 5,000 UNIT/ML VIAL SQ SCH ×2 (05:33→17:07)
[2016-12-24] MEDS: *HR* HYDROmorphone (PF) 1 MG/ML SYRINGE IVP PRN ×6 (06:20→21:43)
[2016-12-24] MEDS: 0.9 % Sodium Chloride 1,000 ML IVC SCH ×2 (06:21→17:07)
[2016-12-24] MEDS: Piperacillin/Tazobactam 3.375 GM in D5% in Water (Mini-Bag+) 100 ML IVPB SCH ×2 (07:22→16:11)
[2016-12-24] MEDS: Ipratropium/Albuterol Neb 3 ML IH SCH ×2 (10:45→23:11)
--- NOTE | 2016-12-24 14:07 | General Surgery Progress Note ---
Date of Encounter: 12/24/16 Time of Encounter: 12:00 - Assessment and Plan (1) Perforated appendicitis Current Visit: Yes Status: Acute patient withsome continued distention and a little more discomfort after drinking clears, will keep on clears for now as she is still tolerating and passing flatus and having bm vitals stable and no fevers continue abx - zosyn prn pain medication (2) Intra-abdominal abscess Current Visit: Yes Status: Acute wbc up to 10 yesterday, will recheck tomorrow, no fevers continue abx, abscess too small to drain (3) Cough Current Visit: Yes Status: Acute continue BID duoneb and aggressive IS therapy Subjective Narrative: she is somewhat tolerating liquids in that she is taking them in, having flatus and bms but is still somewhat feeling distended after she drinks, she doesnt feel like she wants to advance her diet due to this she states her abdominal pain isnt any worse nursing states she is asking for pain medication every 2 hrs Objective Vital Signs - Last 8 Hours Temp Pulse Resp BP Pulse Ox 12/24/16 10:45 97.3 F L 93 16 130/80 99 12/24/16 06:51 98.2 F 94 16 123/75 97 Intake and Output 12/23/16 12/24/16 12/24/16 23:59 07:59 15:59 Intake Total 1421 / 1421 1000 / 1000 1420 / 1420 Output Total 1300 / 1300 700 / 700 1650 / 1650 Balance 121 / 121 300 / 300 -230 / -230 Intake: IV Fluids 1061 / 1061 1000 / 1000 100 / 100 0.9 % Sodium Chloride 1, 961 / 961 900 / 900 000 ML @ 100 mls/hr IVC . Q10H [facility] Rx#:[id number] Zosyn 3.375 GM In 100 / 100 100 / 100 100 / 100 Dextrose 5% (Minibag+) 100 ML 100 ML @ 25 mls/hr IVPB Q8HR [facility] Rx#: [id number] Oral 360 / 360 0 / 0 1320 / 1320 Output: Urine 1300 / 1300 700 / 700 1650 / 1650 Other: Meal Clear Stool Size Small Small Stool Consistency loose loose Stool Color Green Brown # Bowel Movements 0 1 # Bowel Movement Diapers 1 Weight 74.9 kg Patient Weight 12/24/16 23:59 Weight 74.9 kg - General physical appearance well developed, well nourished, no distress - Eyes normal ocular movement - ENT normal mucosa, normocephalic - Neck Neck exam: trachea midline - Respiratory normal expansion, clear to auscultation - Cardiovascular Cardiovascular exam: Present: RRR - Abdomen Abdomen: Present: bowel sounds present, soft, distended (somewhat distended, no rebound or guarding) - Integumentary no rash, no growths - Neurologic CN 2-12 grossly intact - Musculoskeletal normal gait, normal posture - Labs 12/23/16 14:35 12/23/16 04:54 Short CBC 12/23/16 Range/Units 14:35 WBC 10.6 (4.3-11.1) K/mcL Hgb 11.6 (11.5-15.4) g/dL Hct 32.2 L (35.3-44.9) % Plt Count 232 (140-400) K/mcL Neutrophils # 7.8 (1.6-8.9) K/mcL Vital Signs Temp Pulse Resp BP Pulse Ox 12/24/16 10:45 97.3 F L 93 16 130/80 99 12/24/16 06:51 98.2 F 94 16 123/75 97 12/24/16 03:45 99.0 F 95 14 128/80 98 12/24/16 00:19 98.9 F 96 14 127/73 100 12/23/16 20:34 18 96 12/23/16 19:49 99.3 F 94 16 139/81 98 12/23/16 15:28 98.9 F 90 16 129/79 95 Intake and Output 12/23/16 12/24/16 12/24/16 23:59 07:59 15:59 Intake Total 1421 / 1421 1000 / 1000 1420 / 1420 Output Total 1300 / 1300 700 / 700 1650 / 1650 Balance 121 / 121 300 / 300 -230 / -230 Intake: IV Fluids 1061 / 1061 1000 / 1000 100 / 100 0.9 % Sodium Chloride 1, 961 / 961 900 / 900 000 ML @ 100 mls/hr IVC . Q10H [facility] Rx#:[id number] Zosyn 3.375 GM In 100 / 100 100 / 100 100 / 100 Dextrose 5% (Minibag+) 100 ML 100 ML @ 25 mls/hr IVPB Q8HR [facility] Rx#: [id number] Oral 360 / 360 0 / 0 1320 / 1320 Output: Urine 1300 / 1300 700 / 700 1650 / 1650 Other: Meal Clear Stool Size Small Small Stool Consistency loose loose Stool Color Green Brown # Bowel Movements 0 1 # Bowel Movement Diapers 1 Weight 74.9 kg Patient Weight 12/24/16 23:59 Weight 74.9 kg - Imaging Abdominal x-ray: report reviewed, image reviewed Consult Discharge Plan - Plan Referrals: Oleksandr Mai MD [Primary Care Provider] -
[2016-12-25] MEDS: *HR* HYDROmorphone (PF) 1 MG/ML SYRINGE IVP PRN (00:34)
[2016-12-25] MEDS: Piperacillin/Tazobactam 3.375 GM in D5% in Water (Mini-Bag+) 100 ML IVPB SCH (00:34)
[2016-12-25] MEDS: 0.9 % Sodium Chloride 1,000 ML IVC SCH ×2 (04:18→16:26)
[2016-12-25] MEDS: *HR* OxyCODONE/APAP 10/325 TABLET PO PRN ×3 (04:23→16:51)
[2016-12-25 05:10] LABS: Basophils # 0.1 K/mcL (0.0-0.2); Basophils % 0.7 %; Eosinophils # 0.3 K/mcL (0.0-0.6); Eosinophils % 3.2 %; Hematocrit 29.6 % (35.3-44.9); Hemoglobin 10.7 g/dL (11.5-15.4); Immature Granulocytes % 1.9 % (0-4); Lymphocytes # 1.9 K/mcL (0.6-4.6); Lymphocytes % 18.5 %; Mean Corpuscular HGB Conc 36.1 g/dL (31.6-35.5); Mean Corpuscular Hemoglobin 31.3 pg (28.0-33.3); Mean Corpuscular Volume 86.5 fL (83.0-100.0); Mean Platelet Volume 9.1 fL (9.4-12.4); Monocytes # 0.8 K/mcL (0.0-1.3); Monocytes % 7.5 %; Neutrophils # 7.2 K/mcL (1.6-8.9); Platelet Count 236 K/mcL (140-400); Red Blood Count 3.42 M/mcL (3.82-4.97); Red Cell Distribution Width 13.1 % (11.5-14.5); Segmented Neutrophils % 68.2 %
[2016-12-25 05:32] LABS: BUN/Creatinine Ratio 5 (6-26); Calcium 8.9 mg/dL (8.6-10.8); Carbon Dioxide 25 mEq/L (19-29); Chloride 100 mEq/L (98-109); Glucose 104 mg/dL (70-99); Osmolality,Calculated 281 (280-300); Potassium 3.2 mEq/L (3.5-4.5); Sodium 137 mEq/L (136-145); eGFR For African Americans > 60 (> 60); eGFR For Non-African Americans > 60 (> 60)
[2016-12-25 05:34] LABS: Blood Urea Nitrogen 4 mg/dL (7-20)
[2016-12-25] MEDS: *HR* Heparin 5,000 UNIT/ML VIAL SQ SCH ×2 (06:30→17:00)
[2016-12-25] MEDS: metroNIDAZOLE 500 MG TABLET PO SCH ×3 (08:35→21:02)
[2016-12-25] MEDS: Ipratropium/Albuterol Neb 3 ML IH SCH ×2 (08:56→22:37)
--- NOTE | 2016-12-25 12:23 | General Surgery Progress Note ---
Date of Encounter: 12/25/16 Time of Encounter: 12:19 - Assessment and Plan (1) Acute appendicitis Current Visit: Yes Status: Acute Phlegmon in RLQ. Plan is for convalescent laparoscopic appendectomy electively. Continues to have abdominal pain, but is slightly decreased from yesterday. Repeat CT A/P: A 2.1 x 1.9 x 2.2 cm focal air and fluid collection consistent with early abscess is now present, located superior to the inflamed appendix. This was expected and is too small to drain and should respond to antibiotics. Antibiotics will be transitioned to oral (flagyl and cipro) Pain medication transitioned from IV to PO WBC: 14>11.3>8.7>10.5>10.6 Afebrile Will advance diet to see if patient tolerates. If she does tolerate, and wbc are not elevated, will likely discharge tomorrow on oral antibiotics. Qualifiers: Acute appendicitis type: with localized peritonitis Qualified Code(s): K35.3 - Acute appendicitis with localized peritonitis (2) Hypokalemia Current Visit: Yes Status: Acute K+ 3.0 this am. Will replete with PO potassium (80 meq now) Check K+ and Magnesium in am. Subjective Narrative: Patient seen and examined. Still having abdominal pain, but decreasing slightly. She has bowel sounds, flatus and is having bowel movements. She remains afebrile. WBC 10.5 Objective Vital Signs - Last 8 Hours Temp Pulse Resp BP Pulse Ox 12/25/16 10:33 98.5 F 99 16 118/67 97 12/25/16 08:57 16 99 12/25/16 07:00 99.1 F 99 16 158/93 99 Intake and Output 12/24/16 12/25/16 12/25/16 23:59 07:59 15:59 Intake Total 1340 / 1340 2140 / 2140 120 / 120 Output Total 1000 / 1000 1800 / 1800 0 / 0 Balance 340 / 340 340 / 340 120 / 120 Intake: IV Fluids 1100 / 1100 1100 / 1100 0.9 % Sodium Chloride 1, 1000 / 1000 1000 / 1000 000 ML @ 100 mls/hr IVC . Q10H [facility] Rx#:[id number] Zosyn 3.375 GM In 100 / 100 100 / 100 Dextrose 5% (Minibag+) 100 ML 100 ML @ 25 mls/hr IVPB Q8HR [facility] Rx#: [id number] Oral 240 / 240 1040 / 1040 120 / 120 Output: Urine 1000 / 1000 1800 / 1800 0 / 0 Other: Meal Breakfast Percent of Meal Consumed 50% Stool Size Moderate Stool Consistency loose liquid soft Stool Color Brown Green Green # Voids 1 # Bowel Movements 2 Weight 81.102 kg Patient Weight 12/25/16 23:59 Weight 81.102 kg - Additional Exam - General physical appearance well developed, well nourished, no distress - Eyes normal ocular movement - ENT normal mucosa, normocephalic - Neck Neck exam: trachea midline - Respiratory normal expansion, clear to auscultation - Cardiovascular Cardiovascular exam: Present: RRR - Abdomen Abdomen: Present: bowel sounds present, soft, distended (mildly), mild diffuse abdominal tenderness - Integumentary no rash, no growths - Neurologic CN 2-12 grossly intact - Musculoskeletal normal gait, normal posture - Labs 12/25/16 04:49 12/25/16 04:49 Diabetes panel 12/25/16 Range/Units 04:49 Sodium 137 (136-145) mEq/L Potassium 3.2 L (3.5-4.5) mEq/L Chloride 100 (98-109) mEq/L Carbon Dioxide 25 (19-29) mEq/L BUN 4 L (7-20) mg/dL Creatinine 0.75 (0.57-1.11) mg/dL Glucose 104 H (70-99) mg/dL Calcium 8.9 (8.6-10.8) mg/dL Calcium panel 12/25/16 Range/Units 04:49 Calcium 8.9 (8.6-10.8) mg/dL Pituitary panel 12/25/16 Range/Units 04:49 Sodium 137 (136-145) mEq/L Potassium 3.2 L (3.5-4.5) mEq/L Chloride 100 (98-109) mEq/L Carbon Dioxide 25 (19-29) mEq/L BUN 4 L (7-20) mg/dL Creatinine 0.75 (0.57-1.11) mg/dL Glucose 104 H (70-99) mg/dL Calcium 8.9 (8.6-10.8) mg/dL Adrenal panel 12/25/16 Range/Units 04:49 Sodium 137 (136-145) mEq/L Potassium 3.2 L (3.5-4.5) mEq/L Chloride 100 (98-109) mEq/L Carbon Dioxide 25 (19-29) mEq/L BUN 4 L (7-20) mg/dL Creatinine 0.75 (0.57-1.11) mg/dL Glucose 104 H (70-99) mg/dL Calcium 8.9 (8.6-10.8) mg/dL Consult Discharge Plan - Plan Referrals: Oleksandr Mai MD [Primary Care Provider] - - Attending Attestation I examined this patient and my medical decision-making was reviewed with the WHITTLING ROOM OPERATOR/PA/Advanced Practice Nurse/Resident Physician. I agree with the documented findings, disposition and treatment plan as described except to the extent set forth below. The patient is seen and evaluated on morning rounds with rest. She is started on oral antibiotic and regular diet. Asim Sutton MD FACS
[2016-12-26] MEDS: *HR* OxyCODONE/APAP 10/325 TABLET PO PRN ×2 (00:32→06:46)
[2016-12-26] MEDS: 0.9 % Sodium Chloride 1,000 ML IVC SCH (02:44)
[2016-12-26] MEDS: *HR* Heparin 5,000 UNIT/ML VIAL SQ SCH (06:14)
[2016-12-26 07:41] LABS: Basophils # 0.1 K/mcL (0.0-0.2); Basophils % 0.7 %; Eosinophils # 0.3 K/mcL (0.0-0.6); Eosinophils % 3.2 %; Hematocrit 29.3 % (35.3-44.9); Hemoglobin 10.6 g/dL (11.5-15.4); Immature Granulocytes % 3.4 % (0-4); Lymphocytes # 2.1 K/mcL (0.6-4.6); Lymphocytes % 21.1 %; Mean Corpuscular HGB Conc 36.2 g/dL (31.6-35.5); Mean Corpuscular Hemoglobin 31.5 pg (28.0-33.3); Mean Corpuscular Volume 87.2 fL (83.0-100.0); Mean Platelet Volume 9.3 fL (9.4-12.4); Monocytes # 0.7 K/mcL (0.0-1.3); Monocytes % 6.8 %; Neutrophils # 6.6 K/mcL (1.6-8.9); Platelet Count 218 K/mcL (140-400); Red Blood Count 3.36 M/mcL (3.82-4.97); Red Cell Distribution Width 13.2 % (11.5-14.5); Segmented Neutrophils % 64.8 %
[2016-12-26 07:46] VITALS: BP 136/82
[2016-12-26] MEDS: metroNIDAZOLE 500 MG TABLET PO SCH (07:57)
[2016-12-26] MEDS: Ipratropium/Albuterol Neb 3 ML IH SCH (09:24)
--- NOTE | 2016-12-26 10:35 | Discharge Summary ---
<Kat Bailey - Last Filed: 12/26/16 10:31> Date of Encounter: 12/26/16 Time of Encounter: 10:30 - Discharge Diagnosis (1) Perforated appendicitis Priority: Primary Status: Acute (2) Intra-abdominal abscess Priority: Secondary Status: Acute - Discharge Medications Prescriptions: OxyCODONE/APAP 5/325 [Percocet 5/325 MG] 1 each PO Q6HR PRN #25 tablet PRN Reason: Pain Docusate [Colace] 100 mg PO BID #30 capsule Levofloxacin [Levaquin] 500 mg PO DAILY #7 tablet MetroNIDAZOLE [Flagyl] 500 mg PO TID #21 tablet Home Medications: Dicyclomine [Bentyl] 10 mg PO QID PRN #20 capsule 12/16/16 [Rx] Na Phos,M-B/Na Phos,Di-Ba [Fleet Enema Extra] 230 ml RC BID #2 enema 12/16/16 [ Rx] Ondansetron HCl [Zofran] 4 mg PO QID #15 tablet 12/16/16 [Rx] Celecoxib [Celebrex] 200 mg PO DAILY 12/19/16 [History] Cyclobenzaprine [Flexeril] 10 mg PO DAILY PRN 12/19/16 [History] Methylphenidate HCl [Ritalin] 20 mg PO DAILY 12/19/16 [History] Triamterene/Hydrochlorothiazid [Dyazide 37.5-25 Capsule] 1 each PO DAILY [History] Venlafaxine HCl [Venlafaxine HCl ER] 150 mg PO DAILY 12/19/16 [History] Docusate [Colace] 100 mg PO BID #30 capsule 12/26/16 [Rx] Levofloxacin [Levaquin] 500 mg PO DAILY #7 tablet 12/26/16 [Rx] MetroNIDAZOLE [Flagyl] 500 mg PO TID #21 tablet 12/26/16 [Rx] OxyCODONE/APAP 5/325 [Percocet 5/325 MG] 1 each PO Q6HR PRN #25 tablet 12/26/16 [Rx] Allergies/Adverse Reactions: Allergies Sulfa (Sulfonamide Antibiotics) Allergy (Verified 12/19/16 00:55) Rash General Surgery Exam Initial Vital Signs Temp Pulse Resp BP Pulse Ox 99.6 F 108 18 125/85 98 12/19/16 00:53 12/19/16 00:53 12/19/16 00:53 12/19/16 00:53 12/19/16 00:53 - General physical appearance well developed, well nourished, no distress - Eyes normal ocular movement - ENT normal mucosa, atraumatic, normocephalic - Neck trachea midline - Respiratory normal respiratory effort, clear to auscultation - Cardiovascular Cardiovascular exam: Present: RRR, 15, 16 - Abdomen Abdomen general surgery: Present: bowel sounds present, soft, tender ( significantly improved) - Integumentary Integumentary general surgery: Present: warm and dry - Neurologic Present: CN 2-12 grossly intact - Psychiatric Psychiatric general surgery: Present: A&Ox3 Date of admission: 12/19/16 10:08 Primary care physician: Oleksandr Mai Consults: 12/22/16 12:32 Consult to Invasive Line Access Team [CONS] Routine Reason for Consult: poor access Line Type: EPIV Discharging clinician: Asim Sutton ([facility]) Anticipated date of discharge: 12/26/16 - Patient Status Disposition: Home, Self-Care Condition: Good Functional capacity at discharge: independent ambulation Overall status at discharge: patient is progressing back to baseline - Discharge Instructions Instructions: Oxycodone/Acetaminophen (By mouth), Metronidazole (By mouth), Laxative, Stool Softeners (By mouth), Levofloxacin (By mouth), Appendicitis (DC) Follow Up With: Asim Sutton MD [Partnered Physician] - 01/09/17 12:25 pm (hospital follow-up) - Diet and Activity Activity: increase activity as tolerated Diet: advance to your usual diet - Hospital Course Hospital course: Ms. Bedoya is a 56 year old female who presented to the hospital with a 5 day history of abdominal pain. Her CT revealed a perforated appendicitis with phlegmon. She was started on conservative therapy including bowel rest, IV antibiotics, IV fluids, pain control. She was maintained on IV antibiotics during her hospital course. She did have a repeat CT 48 hours into hospitalization. The CT revealed a 2cm abscess was not amenable to Percutaneous drainage. We slowly advanced her diet with return of bowel function. She is currently tolerating a regular diet without nausea/vomiting. Her WBC count is normal. Vital signs are stable and she is afebrile. She is having bowel function. We will begin discharge planning and plan for outpatient follow-up in the next 14 days to discuss interval appendectomy with Dr. Sutton. - Time Spent with Patient Total time spent providing and/or coordinating discharge services: Less than 30 minutes Labs on day of discharge: Labs from last 24 hours 12/26/16 07:32 WBC 10.1 RBC 3.36 L Hgb 10.6 L Hct 29.3 L MCV 87.2 MCH 31.5 MCHC 36.2 H RDW 13.2 Plt Count 218 MPV 9.3 L Immature Gran % 3.4 Seg Neutrophils % 64.8 Lymphocytes % 21.1 Monocytes % 6.8 Eosinophils % 3.2 Basophils % 0.7 Neutrophils # 6.6 Lymphocytes # 2.1 Monocytes # 0.7 Eosinophils # 0.3 Basophils # 0.1 - Impressions ITS Impressions Abdomen/Pelvis CT 12/21/16 11:00 IMPRESSION: There has been interval organization of phlegmonous change superior to the tip of the inflamed appendix. A 2.1 x 1.9 x 2.2 cm focal air and fluid collection consistent with early abscess is now present. Trace ascites in the low pelvis. No free air. Hepatic steatosis. Nonspecific distention of the gallbladder. D/ / 12/21/2016 14:23:01 Enrique Vincent MD / Odalis Colvin Interpreting Provider: Enrique Vincent MD Abdomen X-Ray 12/23/16 14:04 IMPRESSION: Mild to moderate ileus versus partial distal colonic obstruction. D/ / Bill Ledezma MD / Bill Ledezma MD Interpreting Provider: Bill Ledezma MD - Attending Attestation I examined this patient and my medical decision-making was reviewed with the BRANCH RETAIL EXECUTIVE/PA/Advanced Practice Nurse/Resident Physician. I agree with the documented findings, disposition and treatment plan as described except to the extent set forth below. <Asim Sutton - Last Filed: 12/27/16 07:02> Date of Encounter: 12/26/16 - Discharge Diagnosis (1) Acute appendicitis Status: Acute Qualifiers: Acute appendicitis type: with localized peritonitis Qualified Code(s): K35.3 - Acute appendicitis with localized peritonitis (2) Hypokalemia Status: Acute General Surgery Exam Initial Vital Signs Temp Pulse Resp BP Pulse Ox 99.6 F 108 18 125/85 98 12/19/16 00:53 12/19/16 00:53 12/19/16 00:53 12/19/16 00:53 12/19/16 00:53 Date of admission: 12/19/16 10:08 Primary care physician: Oleksandr Mai Consults: 12/22/16 12:32 Consult to Invasive Line Access Team [CONS] Routine Reason for Consult: poor access Line Type: EPIV - Hospital Course Hospital course: Ms. Bedoya is a 56 year old female - Time Spent with Patient Total time spent providing and/or coordinating discharge services: Labs on day of discharge: Labs from last 24 hours 12/26/16 07:32 WBC 10.1 RBC 3.36 L Hgb 10.6 L Hct 29.3 L MCV 87.2 MCH 31.5 MCHC 36.2 H RDW 13.2 Plt Count 218 MPV 9.3 L Immature Gran % 3.4 Seg Neutrophils % 64.8 Lymphocytes % 21.1 Monocytes % 6.8 Eosinophils % 3.2 Basophils % 0.7 Neutrophils # 6.6 Lymphocytes # 2.1 Monocytes # 0.7 Eosinophils # 0.3 Basophils # 0.1 - Impressions ITS Impressions Abdomen/Pelvis CT 12/21/16 11:00 IMPRESSION: There has been interval organization of phlegmonous change superior to the tip of the inflamed appendix. A 2.1 x 1.9 x 2.2 cm focal air and fluid collection consistent with early abscess is now present. Trace ascites in the low pelvis. No free air. Hepatic steatosis. Nonspecific distention of the gallbladder. D/ / 12/21/2016 14:23:01 Enrique Vincent MD / Odalis Colvin Interpreting Provider: Enrique Vincent MD Abdomen X-Ray 12/23/16 14:04 IMPRESSION: Mild to moderate ileus versus partial distal colonic obstruction. D/ / Bill Ledezma MD / Bill Ledezma MD Interpreting Provider: Bill Ledezma MD - Attending Attestation The patient is seen and evaluated on morning rounds. OK for discharge on po antibiotics. F/u one week in offfice Asim Sutton MD FACS
== END 2016-12-26 11:58 | disposition home or self-care (01) | DRG 373 ==
LOC: EMEROO 23:53 → 3ANU 23:53
PROVIDERS: ADMIT Surgery; ATTEND Surgery